=== PATIENT | male | born 1980 | race Caucasian/White ===

== ENCOUNTER 2016-09-27 21:57 | Emergency (ER) | payer OTHER ==
[~2016-09-27] VITALS: Ht 182.9 cm; Wt 85.3 kg
[~2016-09-27 21:57] MED LIST: BENTYL20 MG PO; CARAFATE1 GM PO; CIPRO500 MG PO; CIPROFLOXACIN500 M1 PO; COLACE100 MG PO; DAILY VITE1 EAC1 PO; DICYCLOMINE HCL20 MG PO; ENDOCET 5-3251 EACH PO; FIORICET WI1 CAPSULE PO; FIORICET,ESG1 TABLET PO; FLAGYL500 MG PO; GABAPENTIN300 MG PO; NORCO 5/3251 TABLET PO; OXAYDO5 MG PO; OXYCODONE HCL5 MG PO; PHENERGAN25 MG PR; PROMETHAZINE HC25 M1 PO; PROTONIX40 MG PO; SENOKOT,SENN1 TABLET PO; SUMATRIPTAN SUC50 MG PO; TOPAMAX25 MG PO; TRAMADOL HCL50 MG PO; ULTRAM50 MG PO; ZANTAC150 M1; ZANTAC150 MG PO; ZEBUTAL 50-3251 EACH PO; ZEGERID20 MG; ZEGERID20 MG PO; ZOFRAN ODT8 MG PO; ZOFRAN4 MG PO
[2016-09-27] MEDS ORDERED: ERYTHROMYC1 APPLICAT LEFT EYE (23:57)
[2016-09-28 00:07] VITALS: BP 148/103
== END 2016-09-28 00:08 | disposition home or self-care (01) ==
LOC: EME 21:57
DX: S05.02XA Injury of conjunctiva and corneal abrasion without foreign body, left eye, initial encounter (principal); X58.XXXA Exposure to other specified factors, initial encounter; R51 Headache; Z87.891 Personal history of nicotine dependence
CPT/HCPCS: 99281; 99284

== ENCOUNTER 2016-10-13 16:03 | Emergency (ER) | payer OTHER ==
[~2016-10-13] VITALS: Ht 182.9 cm; Wt 85.5 kg
[~2016-10-13 16:03] MED LIST changes: +ERYTHROMYC1 APPLICAT LEFT EYE
[2016-10-13 16:40] LABS: ADD MIUA? NO; BILIRUBIN NEGATIVE; BLOOD NEGATIVE; COLOR YELLOW ((YELLOW)); GLUCOSE (STRIP) NEGATIVE; KETONES NEGATIVE; LEUKOCYTES NEGATIVE; NITRITE NEGATIVE; PROTEIN (STRIP) NEGATIVE; SPECIFIC GRAVITY 1.013 (1.000-1.030); UCUL ADDED? NO; UROBILINOGEN 0.2 MG/DL (0.2-1.0)
[2016-10-13 16:46] LABS: HEMATOCRIT 40.3 % (38.0-50.0); MCH 30.9 PG (29.0-34.0); MCV 88.4 FL (86-99); MEAN PLAT.VOLUME 10.4 uM^3 (9.0-12.4); PLATELET COUNT 204 K/uL (156-360); RBC DIS.WIDTH-CV 11.9 % (11.8-14.6); RBC DIS.WIDTH-SD 37.9 % (39-53); RED BLOOD COUNT 4.56 M/uL (4.00-5.50); WHITE BLOOD COUNT 5.8 K/uL (4.1-10.2)
[2016-10-13 16:56] LABS: CHLORIDE 106 mEq/L (99-109); POTASSIUM 3.9 mEq/L (3.7-5.4); SODIUM 144 mEq/L (136-147)
[2016-10-13 16:57] LABS: GLUCOSE 75 mg/dL (70-99)
[2016-10-13 16:59] LABS: ANION GAP 12 MEQ/L (2-14)
[2016-10-13 17:01] LABS: GFR ESTIMATE (CALCULATED) > 59 mL/min/
[2016-10-13 17:02] LABS: UREA NITROGEN (BUN) 10 mg/dL (9-23)
[2016-10-13 18:35] LABS: TOTAL BILIRUBIN 0.4 mg/dL (0.0-1.0)
[2016-10-13 18:36] LABS: ALKALINE PHOSPHATASE 72 IU/L (3-129)
[2016-10-13 18:39] LABS: DIRECT BILIRUBIN 0.1 mg/dL (0.0-0.3)
[2016-10-13 18:40] LABS: LIPASE 17 U/L (1.0-51.0)
[2016-10-13] MEDS ORDERED: CARAFATE1 GM PO (20:13)
[2016-10-13] MEDS ORDERED: MIRALAX17 GM PO (20:13)
[2016-10-13 20:27] VITALS: BP 134/95
== END 2016-10-13 20:30 | disposition home or self-care (01) ==
LOC: EME 16:03
DX: R10.9 Unspecified abdominal pain (principal); R11.0 Nausea; K21.9 Gastro-esophageal reflux disease without esophagitis; Z87.442 Personal history of urinary calculi; J45.909 Unspecified asthma, uncomplicated; G89.29 Other chronic pain; Z87.891 Personal history of nicotine dependence
CPT/HCPCS: 74176; 80048; 80076; 81003; 83690; 85027; 99281; 99285

== ENCOUNTER 2016-10-26 14:46 | Emergency (ER) | payer OTHER ==
[~2016-10-26] VITALS: Ht 182.9 cm; Wt 86.6 kg
[~2016-10-26 14:46] MED LIST changes: +MIRALAX17 GM PO
[2016-10-26 15:49] LABS: EOSINOPHIL (%) 2.2 % (0-5); EOSINOPHIL COUNT 0.1 K/uL (0-0.3); HEMATOCRIT 37.6 % (38.0-50.0); IMMATURE GRANULOCYTE (%) 0.2 % (0.0-0.7); INSTRUMENT ABS NEUTROPHIL CT 2.7 K/uL; LYMPHOCYTE COUNT 2.5 K/uL (1.0-2.8); MCHC 35.1 G/DL (30.0-36.0); MCV 88.3 FL (86-99); MEAN PLAT.VOLUME 10.5 uM^3 (9.0-12.4); MONOCYTE (%) 11.6 % (3-12); MONOCYTE COUNT 0.7 K/uL (0-0.8); NEUTROPHIL (%) 44.5 % (45-76); NEUTROPHIL COUNT 2.7 K/uL (1.8-6.4); PLATELET COUNT 191 K/uL (156-360); RBC DIS.WIDTH-CV 11.6 % (11.8-14.6); RBC DIS.WIDTH-SD 36.7 % (39-53); RED BLOOD COUNT 4.26 M/uL (4.00-5.50)
[2016-10-26 16:00] LABS: CHLORIDE 102 mEq/L (99-109); POTASSIUM 3.3 mEq/L (3.7-5.4); SODIUM 138 mEq/L (136-147)
[2016-10-26 16:02] LABS: GLUCOSE 74 mg/dL (70-99)
[2016-10-26 16:03] LABS: ANION GAP 9 MEQ/L (2-14)
[2016-10-26 16:04] LABS: TOTAL BILIRUBIN 0.4 mg/dL (0.0-1.0)
[2016-10-26 16:05] LABS: ALKALINE PHOSPHATASE 69 IU/L (3-129)
[2016-10-26 16:05] LABS: ADD MIUA? NO; BILIRUBIN NEGATIVE; BLOOD NEGATIVE; COLOR YELLOW ((YELLOW)); GLUCOSE (STRIP) NEGATIVE; KETONES NEGATIVE; LEUKOCYTES NEGATIVE; NITRITE NEGATIVE; PROTEIN (STRIP) NEGATIVE; SPECIFIC GRAVITY 1.009 (1.000-1.030); UROBILINOGEN 0.2 MG/DL (0.2-1.0)
[2016-10-26 16:06] LABS: GFR ESTIMATE (CALCULATED) > 59 mL/min/
[2016-10-26 16:07] LABS: UREA NITROGEN (BUN) 11 mg/dL (9-23)
[2016-10-26 16:09] LABS: LIPASE 22 U/L (1.0-51.0)
[2016-10-26] MEDS ORDERED: ZOFRAN ODT8 MG PO (17:32)
[2016-10-26 17:41] VITALS: BP 113/80
== END 2016-10-26 18:07 | disposition home or self-care (01) ==
LOC: EME 14:46
PROVIDERS: Physician Assistant
DX: I95.2 Hypotension due to drugs (principal); R10.9 Unspecified abdominal pain; J45.909 Unspecified asthma, uncomplicated; K21.9 Gastro-esophageal reflux disease without esophagitis; G89.29 Other chronic pain; K58.9 Irritable bowel syndrome, unspecified; Z87.891 Personal history of nicotine dependence; Z87.442 Personal history of urinary calculi
CPT/HCPCS: 80053; 81003; 83690; 85025; 99281; 99285; J2270; J2405; J7030

== ENCOUNTER 2016-11-19 08:14 | Day surgery (SDC) | payer OTHER ==
[~2016-11-19] VITALS: Ht 182.9 cm; Wt 86.0 kg
[~2016-11-19 08:14] MED LIST changes: +ELAVIL50 MG PO; +FIORICET 50-301 EACH PO; +INDERAL LA80 MG PO; +OMEPRAZOLE40 M1 PO; +VENTOLIN HFA18 GM IH; +ZANAFLEX4 M1 PO; -ZEBUTAL 50-3251 EACH PO; +ZOFRAN ODT4 MG PO
[2016-11-19 08:57] VITALS: BP 127/82
[2016-11-19] MEDS ORDERED: SENNA-DOCUSATE1 EAC1 PO (11:42)
[2016-11-19] MEDS ORDERED: TRAMADOL HCL50 MG PO (11:42)
[2016-11-19 13:50] VITALS: BP 129/76
[2016-11-19 14:51] VITALS: BP 123/81
[2016-11-19 15:16] VITALS: BP 123/79
== END 2016-11-19 15:27 | disposition home or self-care (01) ==
LOC: SDC 08:14
DX: K64.1 Second degree hemorrhoids (principal); K64.5 Perianal venous thrombosis; K21.0 Gastro-esophageal reflux disease with esophagitis; I10 Essential (primary) hypertension; Z87.891 Personal history of nicotine dependence
CPT/HCPCS: 88304; 93005; J0585; J1100; J1170; J1335; J2250; J2405; J2710; J3010